=== PATIENT | male | born 1995 | race African-American/Black ===

== ENCOUNTER 2023-08-30 11:31 | Emergency (ER) | payer OTHER ==
[~2023-08-30] VITALS: Ht 175.3 cm; Wt 104.3 kg
[2023-08-30 12:12] VITALS: BP 147/98; TEMP 98.1
[2023-08-30] MEDS: CEPHALEXIN MONOHYDRATE 500 MG CAPSULE PO ONE (12:30)
[2023-08-30] MEDS ORDERED: CEPHALEXIN MONOHYDRATE 500 MG CAPSULE PO ONE (12:36)
[2023-08-30] MEDS ORDERED: IBUPROFEN 600 MG TABLET ONE (12:36)
[2023-08-30] MEDS: IBUPROFEN 600 MG TABLET PO ONE (12:39)
[2023-08-30] MEDS ORDERED: CEPH500C2 PO (13:02)
[2023-08-30 13:10] VITALS: O2SAT 98
== END 2023-08-30 13:17 | disposition home or self-care (01) ==
LOC: ER 11:49 → EDSEX 11:49 → ER 13:17
DX: L03.115 Cellulitis of right lower limb (principal); I10 Essential (primary) hypertension